=== PATIENT | male | born 1965 | race Caucasian/White ===

== ENCOUNTER 2021-02-01 19:31 | Emergency (ER) | payer BC, SELFPAY ==
--- NOTE | ~2021-02-01 | CT_ITS ---
EXAMINATION: CT ABDOMEN AND PELVIS WITHOUT CONTRAST CLINICAL INFORMATION: Right flank pain COMPARISON: CT scan pelvis 03/08/2016 TECHNIQUE: Multidetector volumetric imaging was performed from the superior aspect of the liver through the pubic symphysis. Sagittal and coronal reformatted images were obtained on the technologist's workstation. This CT examination was performed using dose optimization techniques as appropriate, variously including the following: *Automated exposure control *Adjustment of mA and/or kV according to patient size (this includes techniques or standardized protocols for targeted exams where dose is matched to indication/reason for exam; i.e. extremities or head) *Use of iterative reconstruction technique DLP: 582 mGy-cm FINDINGS: LUNG BASES: The visualized lung bases are unremarkable. LIVER, GALLBLADDER, AND BILIARY TREE: The liver is normal in size, shape, and attenuation. No focal hepatic lesion or biliary ductal dilatation is present. Status post cholecystectomy PANCREAS: Unremarkable. SPLEEN: Unremarkable. ADRENAL GLANDS: Unremarkable. KIDNEYS AND URETERS: Left kidney: There are 2 stones in the left kidney measuring about 2 mm each. These are in the mid and lower pole. The midpole stone is unchanged since 2016. The lower pole stone is new since 2016. There is slight fullness of the left renal pelvis but no distention of the calyces and no hydroureter. There is no ureteral stone. Right kidney: There is a 2 mm curvilinear calcification which is likely a stone in the mid upper pole of the right kidney. This is unchanged since 2016. There is no ureteral stone. There is no hydronephrosis. BLADDER: Unremarkable. GASTROINTESTINAL TRACT: There are a few diverticula of the sigmoid colon. There is no diverticulitis. There is no bowel wall thickening /edema. There is no bowel obstruction. There is a moderate volume of stool in the colon. The appendix is normal . The small bowel loops are unremarkable. The stomach is normal. There is no hiatal hernia. ABDOMINAL WALL: No significant hernia is appreciated. LYMPH NODES: Normal. VASCULAR: Unremarkable. PELVIC VISCERA: Unremarkable. OSSEOUS STRUCTURES: Unremarkable. CT/CT abdomen pelvis wo con IMPRESSION: 1. Small nonobstructive bilateral renal calculi. No hydronephrosis or ureteral stone. 2. Status post cholecystectomy.
[2021-02-01 19:58] VITALS: BP 157/83; PULSE 73; RESP 18; TEMP 36.8; O2SAT 100; BMI 26.1
--- NOTE | 2021-02-01 20:44 | ED.ABDPAIN ---
HPI - Abdominal Pain General Chief Complaint: Back Pain/Injury Stated Complaint: LOWER BACK PAIN Source: patient Mode of arrival: ambulatory Limitations: no limitations History of Present Illness HPI narrative: 55-year-old male with no significant past medical history presents with a sudden onset of left-sided lower flank pain that started at 5:00 p.m. and radiates to his abdomen. The pain started after stood up after sitting for long period of time. He does note to have dark colored urine, has 10/10 pain, and feel months nauseous because of the pain. Does have a family history of kidney stones but does not have a prior diagnosis of kidney stones. He denies chest pain or pressure, palpitations, shortness of breath, abdominal distention, dysuria, fevers, chills, diarrhea, constipation, weakness and trauma or repetitive motion. MD elicited complaint: abdominal pain and flank pain Pertinent past history: none Onset (ago): hour(s) (A few hours prior to arrival) Pain Consistency: intermittent Location: L flank Severity: severe Quality: stabbing Radiation: suprapubic Relieving factors: nothing Associated symptoms: hematuria Related Data Previous Rx's Medication Instructions Recorded oxycodone 5 mg PO Q8H PRN #14 tab 02/01/21 prednisone 20 mg PO DAILY 5 Days #5 tab 02/01/21 tamsulosin [Flomax] 0.4 mg PO DAILY #30 cap 02/01/21 Allergies Allergy/AdvReac Type Severity Reaction Status Date / Time Penicillins [PENICILLINS] Allergy Intermediate HIVES RASH Verified 02/01/21 19:57 Sulfa (Sulfonamide Allergy Intermediate HIVES RASH Verified 02/01/21 19:57 Antibiotics) [SULFA (SULFONAMIDE ANTIBIOTICS)] penicillin V Allergy Unknown Hives Verified 02/01/21 19:57 Review of Systems Review of Systems Constitutional: No Fever, No Chills ENT/Mouth: No sore throat Eyes: No Eye Pain, No Swelling, No Redness Cardiovascular: No Chest Pain, No SOB Respiratory: No Cough, No Sputum, No Wheezing Gastrointestinal: positive Nausea, no Vomiting, No Diarrhea, positive abdominal pain Genitourinary: No Dysuria, no urinary frequency, positive Hematuria, positive Flank Pain, no hesitancy Musculoskeletal: No joint pain, No Myalgias Skin: No Skin Lesions, No rash Neuro: No Weakness, No Numbness, No Headache Psych: No Anxiety/Panic, No Depression Heme/Lymph: No Bruising, No Lymphadenopathy Endocrine: No Polyuria, No Polydipsia Yes all other systems are reviewed and are negative Physical Exam Vital Signs: Vital Signs: Last Vital Signs Temp 98.3 F 02/01/21 19:58 Pulse 73 02/01/21 19:58 Resp 18 02/01/21 19:58 BP 157/83 H 02/01/21 19:58 Pulse Ox 100 02/01/21 19:58 Body Mass Index 26.1 Appearance: Alert. Oriented X3. Moderate distress. Eyes: Pupils equal, round and reactive to light. EOMI, sclera nonicteric ENT: Pharynx normal. Moist mucous membranes Neck: Normal inspection. Neck supple. CVS: Normal heart rate and rhythm. Pulses normal. Respiratory: No respiratory distress. Breath sounds normal. Abdomen: Soft and tender to the left lower quadrant, CVA tenderness to the left side Skin: Skin warm and dry. Normal skin color. Normal skin turgor. Extremities: No lower extremity edema. Moves all extremities against resistance Neuro: No motor deficit. No sensory deficit. Cranial nerves 2-12 intact, gait well balanced well coordinated Course Course Course Narrative: 55-year-old male with no significant past medical history presents with sudden onset of left-sided flank pain and reports dark colored urine. Presentation highly suspicious for kidney stone, will order CBC, Chem 7, urinalysis and CT scan of the abdomen and pelvis. Will resuscitate with fluids, give morphine, Toradol for pain management. Will rule out ACS and acute abdomen. EKG is normal sinus rhythm, shows some prolonged QT interval with no of ST elevation or depression indicating ischemia, troponin is 0. Highly unlikely that this is ACS. CT scan positive for bilateral renal stones, no obstruction or pyelonephritis noted. Urinalysis is negative for nitrites and leukocyte esterase, small amount of bacteria positive for heme. Plan of care is to treat with Flomax, prednisone, oxycodone for pain management, and follow-up with Urology. Patient verbalized understanding of and agrees to plan of care discharge home. MDM - Abdominal Pain Differential Diagnosis Differential diagnosis: Likely abdominal pain, calculus of kidney, diverticulitis, pancreatitis and small bowel obstruction Medical Records Attestation: I reviewed the patient's medical records. Lab Data Attestation: I reviewed the patient's lab results. Result diagrams: 02/01/21 21:02 02/01/21 21:02 Labs: Lab Results 02/01/21 02/01/21 02/01/21 Range/Units 21:02 21:02 21:02 WBC 12.1 H (4.8-10.8) X10*3/uL RBC 4.74 (4.60-5.80) X10*6/uL Hgb 14.9 (14.0-18.0) g/dl Hct 44.3 (42-52) % MCV 93.5 (80-98) fL MCH 31.4 (27.0-33.0) pg MCHC 33.6 (31.0-36.0) g/dl RDW 12.9 (11.0-16.0) % Plt Count 214 (160-400) X10*3/uL MPV 9.3 L (9.4-12.4) fL Immature Gran % (Auto) 0.2 (0.0-0.4) % Neut % (Auto) 89.1 H (45-73) % Lymph % (Auto) 8.0 L (20-40) % Menard % (Auto) 2.3 (2-11) % Eos % (Auto) 0.2 (0-4) % Baso % (Auto) 0.2 (0-2) % Lymph # (Auto) 1.0 L (1.2-4.9) X10*3/uL Menard # (Auto) 0.3 (0.1-1.2) X10*3/uL Eos # (Auto) 0.0 (0.0-0.4) X10*3/uL Baso # (Auto) 0.0 (0.0-0.2) X10*3/uL Abs Immat Gran (auto) 0.02 (0.00-0.03) X10*3/uL Absolute Neuts (auto) 10.8 H (2.0-8.3) X10*3/uL Absolute Nucleated RBC 0.000 (0.0-0.012) X10*3/uL Nucleated RBC % (auto) 0.0 (0.0-0.2) /100WBC PT 14.5 H (10.8-13.0) SEC INR 1.2 H (0.9-1.1) APTT 30.9 (24.1-38.0) SEC Sodium 138 (135-145) mmol/L Potassium 4.5 (3.3-5.1) mmol/L Chloride 103 (96-108) mmol/L Carbon Dioxide 23 (22-29) mmol/L Anion Gap 17 (12-20) BUN 20 H (9-16) mg/dL Creatinine 1.11 (0.5-1.4) mg/dL Estim Creat Clear Calc 80.5 Estimated GFR > 60 Random Glucose 148 H (60-115) mg/dL Calcium 8.8 (8.4-10.2) mg/dL Total Bilirubin 0.4 (0.0-1.0) mg/dL Direct Bilirubin 0.2 (0.0-0.5) mg/dL AST 17 (5-37) U/L ALT 22 (0-40) U/L Alkaline Phosphatase 79 (39-117) U/L Troponin I High Sens (<3.5-35.0) ng/L Total Protein 6.8 (6.5-8.0) g/dL Albumin 4.4 (3.5-5.0) g/dL Lipase 16 (8-78) U/L Urine Color Urine Appearance Urine pH (5.0-8.0) Ur Specific [place] (1.005-1.025) Urine Protein (NEG-TRACE) MG/DL Urine Glucose (UA) (NEG) MG/DL Urine Ketones (NEG) MG/DL Urine Blood (NEG) Urine Nitrite (NEG) Ur Leukocyte Esterase (NEG) Urine RBC (0) /HPF Urine WBC (0-4) /HPF Ur Squamous Epith Cells /LPF Urine Bacteria /LPF 02/01/21 02/01/21 Range/Units 21:02 21:02 WBC (4.8-10.8) X10*3/uL RBC (4.60-5.80) X10*6/uL Hgb (14.0-18.0) g/dl Hct (42-52) % MCV (80-98) fL MCH (27.0-33.0) pg MCHC (31.0-36.0) g/dl RDW (11.0-16.0) % Plt Count (160-400) X10*3/uL MPV (9.4-12.4) fL Immature Gran % (Auto) (0.0-0.4) % Neut % (Auto) (45-73) % Lymph % (Auto) (20-40) % Menard % (Auto) (2-11) % Eos % (Auto) (0-4) % Baso % (Auto) (0-2) % Lymph # (Auto) (1.2-4.9) X10*3/uL Menard # (Auto) (0.1-1.2) X10*3/uL Eos # (Auto) (0.0-0.4) X10*3/uL Baso # (Auto) (0.0-0.2) X10*3/uL Abs Immat Gran (auto) (0.00-0.03) X10*3/uL Absolute Neuts (auto) (2.0-8.3) X10*3/uL Absolute Nucleated RBC (0.0-0.012) X10*3/uL Nucleated RBC % (auto) (0.0-0.2) /100WBC PT (10.8-13.0) SEC INR (0.9-1.1) APTT (24.1-38.0) SEC Sodium (135-145) mmol/L Potassium (3.3-5.1) mmol/L Chloride (96-108) mmol/L Carbon Dioxide (22-29) mmol/L Anion Gap (12-20) BUN (9-16) mg/dL Creatinine (0.5-1.4) mg/dL Estim Creat Clear Calc Estimated GFR Random Glucose (60-115) mg/dL Calcium (8.4-10.2) mg/dL Total Bilirubin (0.0-1.0) mg/dL Direct Bilirubin (0.0-0.5) mg/dL AST (5-37) U/L ALT (0-40) U/L Alkaline Phosphatase (39-117) U/L Troponin I High Sens < 3.5 (<3.5-35.0) ng/L Total Protein (6.5-8.0) g/dL Albumin (3.5-5.0) g/dL Lipase (8-78) U/L Urine Color STRAW Urine Appearance HAZY Urine pH 7.5 (5.0-8.0) Ur Specific [place] 1.025 (1.005-1.025) Urine Protein NEG (NEG-TRACE) MG/DL Urine Glucose (UA) NEG (NEG) MG/DL Urine Ketones 15 (NEG) MG/DL Urine Blood 3+ H (NEG) Urine Nitrite NEG (NEG) Ur Leukocyte Esterase NEG (NEG) Urine RBC 30-49 H (0) /HPF Urine WBC 0 (0-4) /HPF Ur Squamous Epith Cells NONE /LPF Urine Bacteria 1+ /LPF Imaging Data CT scan - abdomen: Attestation: I personally reviewed and interpreted this imaging study as follows: Radiologist's impression: EXAMINATION: CT ABDOMEN AND PELVIS WITHOUT CONTRAST CLINICAL INFORMATION: Right flank pain COMPARISON: CT scan pelvis 03/08/2016 TECHNIQUE: Multidetector volumetric imaging was performed from the superior aspect of the liver through the pubic symphysis. Sagittal and coronal reformatted images were obtained on the technologist's workstation. This CT examination was performed using dose optimization techniques as appropriate, variously including the following: *Automated exposure control *Adjustment of mA and/or kV according to patient size (this includes techniques or standardized protocols for targeted exams where dose is matched to indication/reason for exam; i.e. extremities or head) *Use of iterative reconstruction technique DLP: 582 mGy-cm FINDINGS: LUNG BASES: The visualized lung bases are unremarkable. LIVER, GALLBLADDER, AND BILIARY TREE: The liver is normal in size, shape, and attenuation. No focal hepatic lesion or biliary ductal dilatation is present. Status post cholecystectomy PANCREAS: Unremarkable. SPLEEN: Unremarkable. ADRENAL GLANDS: Unremarkable. KIDNEYS AND URETERS: Left kidney: There are 2 stones in the left kidney measuring about 2 mm each. These are in the mid and lower pole. The midpole stone is unchanged since 2016. The lower pole stone is new since 2016. There is slight fullness of the left renal pelvis but no distention of the calyces and no hydroureter. There is no ureteral stone. Right kidney: There is a 2 mm curvilinear calcification which is likely a stone in the mid upper pole of the right kidney. This is unchanged since 2016. There is no ureteral stone. There is no hydronephrosis. BLADDER: Unremarkable. GASTROINTESTINAL TRACT: There are a few diverticula of the sigmoid colon. There is no diverticulitis. There is no bowel wall thickening /edema. There is no bowel obstruction. There is a moderate volume of stool in the colon. The appendix is normal . The small bowel loops are unremarkable. The stomach is normal. There is no hiatal hernia. ABDOMINAL WALL: No significant hernia is appreciated. LYMPH NODES: Normal. VASCULAR: Unremarkable. PELVIC VISCERA: Unremarkable. OSSEOUS STRUCTURES: Unremarkable. CT/CT abdomen pelvis wo con IMPRESSION: 1. Small nonobstructive bilateral renal calculi. No hydronephrosis or ureteral stone. 2. Status post cholecystectomy. ECG Data Attestation: I personally reviewed and interpreted this ECG as follows: ECG interpretation date: 02/02/21 ECG interpretation time: 21:26 Interpretation: Vent. rate 93 BPM MS interval 112 ms QRS duration 100 ms QT/QTc 392/487 ms P-R-T axes 41 11 40 Normal sinus rhythm Incomplete right bundle branch block Prolonged QT Abnormal ECG When compared with ECG of 08-MAR-2016 02:33, Vent. rate has increased BY 35 BPM QT has lengthened Discharge Plan Discharge Clinical Impression: Bilateral kidney stones Patient Disposition: Home, Self-Care Instructions: Kidney Stones (ED) Additional Instructions: You were evaluated for left flank pain. CT scan of the abdomen shows bilateral kidney stones. Please take prednisone and Flomax as directed. We prescribed oxycodone, this medication is a narcotic and has high risk for addiction and abuse. Do not drive or operate machinery while taking this medication. Please follow-up with Urology, Dr. Haile. Please call and request an appointment. Thank you for choosing this emergency department for evaluation. Please follow-up with primary care physician as needed. Return to the emergency department for any new, concerning, or worsening symptoms. Prescriptions: New oxycodone 5 mg tablet 5 mg PO Q8H PRN (Reason: pain) Qty: 14 RF: 0 tamsulosin [Flomax] 0.4 mg capsule 0.4 mg PO DAILY Qty: 30 RF: 0 prednisone 20 mg tablet 20 mg PO DAILY 5 Days Qty: 5 RF: 0 Referrals: Curtis Haile MD [Physician] - 2 days (Bilateral renal stone) Stand Alone Forms: Work/School Release Interventions: ED Discharge Assessment Last Done: 02/01/21 22:23 Discharge Date/Time: 02/01/21 22:29 [facility] Past Medical History Attestation statement: The following information was validated with the patient. Source: old records reviewed Medical History Heartburn IBS (irritable bowel syndrome) Social History Social History Household Members: Spouse, Family and Children Housing: House Are you a primary care team coordinator scheduler to a significant other at home: No Do you presently have visiting nurse or other home services: No Alcohol intake: current Alcohol intake frequency: a few times a month Alcohol type: beer, hard liquor and other Smoking Status: Never smoker Use of substances other than those prescribed or required for medical reasons: No Have you been hit, kicked, punched, or otherwise hurt by someone within the past year? If so, by whom?: No Do you feel safe in your current relationship?: Yes Is there a partner from a previous relationship who is making you feel unsafe now?: No Are you made to feel afraid or neglected: No Advance Directives: No Advance Directives Information Provided: Yes Do you have thoughts of harming others: None Do you have a plan to hurt others: No Plan Do you have the means to hurt others: No Recently lost weight without trying: No service: No Current occupational status: employed Current occupation: [email or web address] in [employer] Current occupational exposures/hazards: No Sexually active: Yes Sexual orientation: Straight/Heterosexual Gender identity: male
--- NOTE | 2021-02-01 20:45 | ECG_ITS ---
Test Reason : LOW LEFT CHEST PAIN Blood Pressure : / mmHG Vent. Rate : 093 BPM Atrial Rate : 093 BPM P-R Int : 112 ms QRS Dur : 100 ms QT Int : 392 ms P-R-T Axes : 041 011 040 degrees QTc Int : 487 ms Normal sinus rhythm Incomplete right bundle branch block Prolonged QT Abnormal ECG When compared with ECG of 08-MAR-2016 02:33, Vent. rate has increased BY 35 BPM QT has lengthened Referred By: Teri Ramirez Electronically Signed By:CLYDE AMEZQUITA
[2021-02-01] MEDS: Ketorolac Tromethamine 30 MG/ML VIAL IVPUSH (21:09)
[2021-02-01] MEDS: 0.9 % Sodium Chloride 1,000 ML 999 ML IVCONT (21:09)
[2021-02-01] MEDS: ondansetron HCL 4 MG/2 ML VIAL IVPUSH (21:09)
[2021-02-01 21:10] LABS: MANUAL DIFF FLAG NO
[2021-02-01] MEDS: Morphine Sulfate 4 MG/ML CARTRIDGE IVPUSH (21:10)
[2021-02-01 21:12] LABS: Basophils Percent Auto 0.2 % (0-2); Eosinophils Percent Auto 0.2 % (0-4); Hematocrit 44.3 % (42-52); Hemoglobin 14.9 g/dl (14.0-18.0); Imm Gran Abs Auto 0.02 X10*3/uL (0.00-0.03); Imm Gran Pct Auto 0.2 % (0.0-0.4); Mean Corpuscular HGB Conc 33.6 g/dl (31.0-36.0); Mean Corpuscular Hemoglobin 31.4 pg (27.0-33.0); Mean Corpuscular Volume 93.5 fL (80-98); Mean Platelet Volume 9.3 fL (9.4-12.4); Monocytes Absolute Auto 0.3 X10*3/uL (0.1-1.2); Monocytes Percent Auto 2.3 % (2-11); Neutrophils Absolute Auto 10.8 X10*3/uL (2.0-8.3); Neutrophils Percent Auto 89.1 % (45-73); Platelet Count 214 X10*3/uL (160-400); Red Blood Count 4.74 X10*6/uL (4.60-5.80); Red Cell Distribution Width 12.9 % (11.0-16.0); White Blood Count 12.1 X10*3/uL (4.8-10.8)
--- NOTE | 2021-02-01 21:13 | PC.NURSE ---
iv inserted, labs drawn, pt medicated per order, urine obtained, pt taken to ct
[2021-02-01 21:14] LABS: Glucose Urine UA NEG (NEG); Leukocyte Esterase Urine NEG (NEG); Nitrite Urine NEG (NEG); PH 7.5 (5.0-8.0); Specific Gravity - Urine 1.025 (1.005-1.025); Urine Blood 3+ (NEG); Urine Ketones 15 MG/DL (NEG); Urine Protein NEG (NEG-TRACE)
[2021-02-01 21:16] LABS: Appearance Urine HAZY; Color Urine STRAW
[2021-02-01 21:18] LABS: INTERNATIONAL NORM RATIO 1.2 (0.9-1.1); Prothrombin Time 14.5 SEC (10.8-13.0)
[2021-02-01 21:20] LABS: Bacteria Urine 1+ /LPF; Partial Thromboplastin Time 30.9 SEC (24.1-38.0); RBC Urine 30-49 /HPF (0); WBC Urine 0 /HPF (0-4)
[2021-02-01 21:51] LABS: Alanine Aminotransferase 22 U/L (0-40); Albumin Level 4.4 g/dL (3.5-5.0); Alkaline Phosphatase 79 U/L (39-117); Anion Gap 17 (12-20); Aspartate Amino Transferase 17 U/L (5-37); Bilirubin Direct 0.2 mg/dL (0.0-0.5); Bilirubin Total 0.4 mg/dL (0.0-1.0); Blood Urea Nitrogen 20 mg/dL (9-16); Calcium 8.8 mg/dL (8.4-10.2); Carbon Dioxide 23 mmol/L (22-29); Chloride 103 mmol/L (96-108); Creatinine Clr Calc Pharmacy 80.5; Estimated Glomerular Filt Rate > 60; Glucose Random 148 mg/dL (60-115); Lipase 16 U/L (8-78); Potassium 4.5 mmol/L (3.3-5.1); Sodium 138 mmol/L (135-145); Total Protein 6.8 g/dL (6.5-8.0)
[2021-02-01 21:57] LABS: Troponin-I High Sensitivity < 3.5 ng/L (<3.5-35.0)
[2021-02-01] MEDS: predniSONE 20 MG TABLET PO (22:17)
[2021-02-01] MEDS: Tamsulosin HCL 0.4 MG CAPSULE PO (22:17)
--- NOTE | 2021-02-01 22:19 | PC.NURSE ---
patient medicated per order
== END 2021-02-01 22:29 | disposition home or self-care (01) ==
PROVIDERS: Nurse Practitioner Family; Emergency Provider Internal Medicine; PCP Internal Medicine
DX: N20.0 Calculus of kidney (principal); M54.5 Low back pain; R10.32 Left lower quadrant pain; Z79.899 Other long term (current) drug therapy
CPT/HCPCS: 36415; 74176; 80048; 80076; 81001; 83690; 84484; 85025; 85610; 85730; 93005; 96365; 96375; 99283; 99284; J1885; J2270; J2405